=== PATIENT | female | born 1935 | race Caucasian/White ===

== ENCOUNTER 2024-04-12 08:15 | Day surgery (SDC) | payer MEDICARE, OTHER, SELFPAY ==
[2024-04-12] VITALS (12 sets, daily range): BP systolic 107–177; BP diastolic 51–95; BMI 37.1
[2024-04-12 09:20] LABS: Hematocrit 39.8 % (37.0-47.0); Mean Corp Hgb Conc. 35.2 g/dL (33.0-37.0); Mean Corpuscular Hgb 33.4 pg (27.0-31.0); Mean Platelet Volume 9.3 fL (7.4-10.4); Platelet Count 213 10^3/uL (130-400); Red Blood Cell Count 4.19 10^6/uL (4.20-5.40); White Blood Cell Count 5.2 10^3/uL (4.8-10.8)
[2024-04-12 09:32] LABS: ALT (SGPT) 16 U/L (0-35); AST (SGOT) 27 U/L (14-36); Albumin 4.5 g/dl (3.5-5.0); Alkaline Phosphatase 56 U/L (38-126); Blood Urea Nitrogen 22 mg/dl (7-17); Carbon Dioxide 27 mmol/L (22-30); Chloride 103 mmol/L (98-107); Glucose 114 mg/dl (70-99); Potassium 4.5 mmol/L (3.5-5.1); Sodium 141 mmol/L (135-145); Total Bilirubin 0.9 mg/dl (0.2-1.3); Total Protein 7.8 g/dl (6.3-8.2); eGFR 48.63
--- NOTE | 2024-04-12 11:37 | ITS.CL.PACE ---
[facility] - Pacemaker Implant
Pacemaker Implant
Procedure Report:
Primary Vacuum Worker: Alphonse Cr MD
Procedure Date: 04/12/2024
Name of procedure:
1. Device Revision: Dual Chamber Pacemaker
2. Pulse Generator Change
History:
See H&P for full details.
Patient is a pleasant 88-year-old female with a history of hypertension, hyperlipidemia, heart failure preserved ejection fraction, chronic atrial fibrillation on chronic anticoagulation, sick sinus syndrome status post single-chamber [employer] pacemaker 2017. Patient device CHIARA/BIAS CUTTING MACHINE OPERATOR VERTICAL. Patient presenting for elective pacemaker generator change in the setting of CHIARA/BIAS CUTTING MACHINE OPERATOR VERTICAL.
Methods:
After informed consent was obtained, the patient was brought to the EP laboratory in a postabsorptive, nonsedated state. Peripheral IV access was established. Prophylactic antibiotics were administered prior to incision. Continues ECG, blood
pressure, and pulse oximetry were initiated. Cardioversion patch electrodes were placed on the patient's chest and back. A grounding patch was applied to the skin. Sedation was administered by anesthesia services.
The left chest was prepared and draped in a sterile fashion. A 'time out' was called. Local anesthesia was injected in the subcutaneous tissue in the infraclavicular area. An incision was made into the chronic scar. With cautious attention to the
leads, the subcutaneous tissue was dissected the level of the device capsule. The capsule was opened, the device was explanted and disconnected from the leads. The leads were inspected and found to be free of visible defect. The leads were tested
and found to have adequate pacing and sensing parameters, consistent with pre-procedure measurements.
The pocket was flushed with antibiotic solution and hemostasis was assured. Antibiotic envelope was used. The generator was connected to the leads and placed inside the pocket. The wound was closed with 3 running layers of absorbable suture and
steri-strips were applied to the skin.
Following the procedure, the patient was taken to the recovery area in stable condition. No complications were noted.
Lead parameters and device programming:
- RV Lead ([employer] Live, [facility]: [facility], [id number]): Sensing 10.1 mV, Pacing threshold 0.9 V at 1.0 ms, Imp 738 Ohm
- Device: [employer] pacemaker model: L310, SN#[id number], programmed VVIR lower rate 60, upper tracking rate 120 ppm
- Explanted device: [employer], model L110, serial number: [id number]
Recommendations:
1. Discharge home when stable with instructions for site care
2. Follow-up will be arranged in our office 7-10 days post-discharge for incision check
Pete Pak DO
Clinical Cardiac Electrophysiology
Copy to: Alphonse Cr MD; Med Badillo MD
== END 2024-04-12 14:05 | disposition home or self-care (01) ==
LOC: CATH 08:15
PROVIDERS: ATTENDING PHYSICIAN Internal Medicine Cardiovascular Disease; REFERRING PHYSICIAN Internal Medicine Cardiovascular Disease
DX: Z45.010 Encounter for checking and testing of cardiac pacemaker pulse generator [battery] (principal); Z79.01 Long term (current) use of anticoagulants; E78.5 Hyperlipidemia, unspecified; I50.32 Chronic diastolic (congestive) heart failure; I11.0 Hypertensive heart disease with heart failure; Z79.899 Other long term (current) drug therapy; I48.91 Unspecified atrial fibrillation; I49.5 Sick sinus syndrome
CPT/HCPCS: 33227; 80053; 85027; 93005; C1786